=== PATIENT | male | born 1975 | race Caucasian/White ===

== ENCOUNTER 2017-01-05 19:56 | Emergency (ER) | payer BC ==
[~2017-01-05] VITALS: Ht 177.8 cm; Wt 106.0 kg
[~2017-01-05 19:56] MED LIST: MTR600XX PO
[2017-01-05 19:59] VITALS: TEMP 36.9; Ht 177.8 cm; Wt 106.0 kg
[2017-01-05] MEDS ORDERED: SODIUM CHLORIDE 0.9% 500ML 500 ML IV STA (20:04)
[2017-01-05] MEDS ORDERED: SODIUM CHLORIDE 0.9% 1000ML 1,000 ML IV STA (20:04)
[2017-01-05] MEDS ORDERED: VANCOMYCIN INJ 2,650 MG in SODIUM CHLORIDE 0.9% 500ML 500 ML IV STA (20:08)
[2017-01-05] MEDS ORDERED: MoRPHine SULFATE 4 MG/ML 1 ML CARP\\VIAL IV STA (20:09)
[2017-01-05] MEDS ORDERED: ONDANSETRON INJ 2 MG/ML 2 ML VIAL IV STA (20:09)
[2017-01-05] MEDS ORDERED: CEFTRIAXONE SOD INJ 1 GM ADDVIAL IV STA (20:11)
[2017-01-05] MEDS ORDERED: BUPR1SUB23 PO (20:13)
[2017-01-05] MEDS ORDERED: IBUP-1050 PO (20:15)
--- NOTE | 2017-01-05 20:25 | EMERGENCY ROOM VISIT NOTE ---
History Report prepared by Crystal: Fabiola Colon Under the Supervision of: Dr. Alyssa Burkett M.D. First contact with patient: 20:04 Chief Complaint: WOUND INFECTION Stated Complaint: WOUND INFECTION History of Present Illness The patient is a 42 year old male who presents to the Emergency Room with complaints of a worsening abdominal wound infection that started one week ago. The patient states that he originally thought that there was tick in his abdomen so he dug at it with a nail clipper. He states that the spot has become erythematous and painful. The patient states that the wound had purulent drainage earlier. He does not think that there is anything in his abdomen now. The patient adds that he shaves his abdomen. He denies any history of diabetes. The patient smokes about a half of a pack a day. Source of History: patient Onset: one week ago Position: abdomen Quality: other (wound infection) Timing: worsening Associated Symptoms: + abdominal pain (in area of the wound) Note: erythema surrounding wound, purulent drainage Review of Systems See HPI for pertinent positives & negatives. A total of 10 systems reviewed and were otherwise negative. Past Medical & Surgical Medical Problems: (1) No significant past medical history Family History No significant family history Social History Smoking Status: Current Every Day Smoker Drug Use: heroin, other Marital Status: in relationship Housing Status: lives with family Occupation Status: employed Current/Historical Medications Scheduled Buprenorphine Hcl-Naloxone Hcl (Suboxone 8-2 Mg), 1 TABS PO BID Cephalexin Monohydrate (Keflex), 500 MG PO QID Ibuprofen (Advil), 400 MG PO DAILY Sulfa/Trimethoprim (Bactrim Ds 800MG/160MG), 1 TAB PO BID Allergies Coded Allergies: Penicillins (Unverified Allergy, Unknown, unknown, 01/05/17) Physical Exam Vital Signs Date Time Temp Pulse Resp B/P Pulse Ox O2 Delivery O2 Flow Rate FiO2 01/05/17 22:52 75 01/05/17 22:18 77 18 135/79 97 Room Air 01/05/17 19:59 36.9 114 18 128/80 96 Room Air Physical Exam Vital signs reviewed. General: Well-appearing male, in no significant distress. HEENT: No scleral icterus, PERRLA, neck supple. Atraumatic. Cardiovascular: Regular rate and rhythm, no extra sounds. Pulmonary: Clear to auscultation bilaterally, normal work of breathing. Abdomen: Soft, obese, 10 cm area of erythema with central abscess that is draining, nontender, nondistended, positive bowel sounds. Musculoskeletal: Atraumatic, no peripheral edema. Neurologic: Patient awake alert and oriented x 3 Skin: Warm, dry, no rash Medical Decision & Procedures ER Provider Diagnostic Interpretation: CT results as stated below per my review and radiologist interpretation: CT OF THE ABDOMEN AND PELVIS WITHOUT CONTRAST IMPRESSION: Skin thickening with mild to moderate subcutaneous infiltration of the lower anterior abdominal wall suggestive of cellulitis. No drainable fluid collection. No soft tissue gas. Electronically signed by: Miguelito Guerrero M.D. 01/05/2017 10:29 PM Dictated Date/Time: 01/05/2017 10:21 PM Laboratory Results 01/05/17 21:05 Red Blood Count 4.78, Mean Corpuscular Volume 82.0, Mean Corpuscular Hemoglobin 28.2, Mean Corpuscular Hemoglobin Concent 34.4, Mean Platelet Volume 8.4, Neutrophils (%) (Auto) 64.5, Lymphocytes (%) (Auto) 23.9, Monocytes (%) (Auto) 10.4, Eosinophils (%) (Auto) 0.8, Basophils (%) (Auto) 0.1, Neutrophils # (Auto ) 4.96, Lymphocytes # (Auto) 1.84, Monocytes # (Auto) 0.80, Eosinophils # (Auto ) 0.06, Basophils # (Auto) 0.01 01/05/17 21:05 Test 01/05/17 21:05 White Blood Count 7.69 K/uL (4.8-10.8) Red Blood Count 4.78 M/uL (4.7-6.1) Hemoglobin 13.5 g/dL (14.0-18.0) Hematocrit 39.2 % (42-52) Mean Corpuscular Volume 82.0 fL (80-100) Mean Corpuscular Hemoglobin 28.2 pg (25-34) Mean Corpuscular Hemoglobin Concent 34.4 g/dl (32-36) Platelet Count 243 K/uL (130-400) Mean Platelet Volume 8.4 fL (7.4-10.4) Neutrophils (%) (Auto) 64.5 % Lymphocytes (%) (Auto) 23.9 % Monocytes (%) (Auto) 10.4 % Eosinophils (%) (Auto) 0.8 % Basophils (%) (Auto) 0.1 % Neutrophils # (Auto) 4.96 K/uL (1.4-6.5) Lymphocytes # (Auto) 1.84 K/uL (1.2-3.4) Monocytes # (Auto) 0.80 K/uL (0.11-0.59) Eosinophils # (Auto) 0.06 K/uL (0-0.5) Basophils # (Auto) 0.01 K/uL (0-0.2) RDW Standard Deviation 37.5 fL (36.4-46.3) RDW Coefficient of Variation 12.3 % (11.5-14.5) Immature Granulocyte % (Auto) 0.3 % Immature Granulocyte # (Auto) 0.02 K/uL (0.00-0.02) Anion Gap 24.0 mmol/L (3-11) Est Creatinine Clear Calc Drug Dose 92.1 ml/min Estimated GFR () 79.1 Estimated GFR (Non- 68.3 BUN/Creatinine Ratio 12.3 (10-20) Calcium Level 7.7 mg/dl (8.5-10.1) Total Bilirubin 0.3 mg/dl (0.2-1) Direct Bilirubin < 0.1 mg/dl (0-0.2) Aspartate Amino Transf (AST/SGOT) 15 U/L (15-37) Alanine Aminotransferase (ALT/SGPT) 29 U/L (12-78) Alkaline Phosphatase 82 U/L (45-117) Total Protein 7.0 gm/dl (6.4-8.2) Albumin 2.9 gm/dl (3.4-5.0) Laboratory results per my review. Medications Administered Medications (Trade) Dose Ordered Sig/Anne Route Start Time Stop Time Status Last Admin Dose Admin Sodium Chloride 500 ml @ 999 mls/hr Q31M STAT IV 01/05/17 20:04 01/05/17 20:34 DC 01/05/17 20:04 999 MLS/HR Sodium Chloride 1,000 ml @ 125 mls/hr Q8H STAT IV 01/05/17 20:04 01/06/17 04:03 01/05/17 20:31 125 MLS/HR Vancomycin HCl/ Sodium Chloride (Vancomycin Inj/ Nss 500ml) 553 ml @ 200 mls/hr ONE STAT IV 01/05/17 20:08 01/05/17 22:53 DC 01/05/17 22:17 200 MLS/HR Morphine Sulfate (MoRPHine SULFATE INJ) 4 mg NOW STAT IV 01/05/17 20:09 01/05/17 20:10 DC 01/05/17 20:31 4 MG Ondansetron HCl (Zofran Inj) 4 mg NOW STAT IV 01/05/17 20:09 01/05/17 20:10 DC 01/05/17 20:31 4 MG Ceftriaxone Sodium (Rocephin Inj) 1 gm NOW STAT IV 01/05/17 20:11 01/05/17 20:12 DC 01/05/17 20:31 1 GM ED Course 2004: Ordered Sodium Chloride 1000 ml @ 125 mls/hr IV, Sodium Chloride 500 ml @ 999 mls/hr IV 2006: Past medical records reviewed. The patient was evaluated in room C1. A complete history and physical examination was performed. 2008: Ordered Vancomycin HCl 2650 mg/Sodium Chloride 553 ml @ 200 mls/hr IV 2009: Ordered Zofran Inj 4 mg IV, Morphine Sulfate 4 mg IV 2011: Ordered Rocephin Inj 1 gm IV 2213: I discussed the patient's case with Orlando Hardwick PA-C. He is going to do an incision and drainage on the patient's abscess. 2215: Ordered Lidocaine HCl 20 ml INFIL 2224: Orlando Hardwick PA-C performed the incision and drainage at this time. Please refer to his note for further management. 2251: Upon reevaluation, the patient appeared to have improvement of his symptoms. I discussed findings with him. He verbalized agreement of the treatment plan. He was discharged home. Medical Decision Differentials include cellulitis, abscess, MRSA infection, DVT, necrotizing fasciitis, dermatitis, drug eruption, as well as others were entertained. This patient was evaluated and appeared to be in no significant distress. IV access was obtained and laboratory work was drawn. The patient was hydrated with normal saline solution. Blood cultures were obtained. Patient's laboratory work reveals a normal white blood cell count. He is not febrile. He does have a large area of cellulitis to the lower abdominal wall with a central abscess collection. There is no palpable crepitus however CT scan was performed of the abdomen and pelvis to rule out a checking fistula or subcutaneous air. Patient was medicated with IV vancomycin and IV ceftriaxone. He does have a penicillin allergy of uncertain effect. An I&D was performed by Orlando Hardwick PA-C. Wound cultures were obtained. The patient was given wound care instructions and will continue with Keflex 4 times a day 7 days and Bactrim twice a day 7 days. Patient was encouraged to return to the ER in 2 days for wound recheck. He was encouraged to establish with a primary care physician and return to the ER sooner for worsening of symptoms or any medical concerns. Impression Primary Impression: Abscess, abdomen Additional Impression: Cellulitis of abdominal wall Scribe Attestation The scribe's documentation has been prepared under my direction and personally reviewed by me in its entirety. I confirm that the note above accurately reflects all work, treatment, procedures, and medical decision making performed by me. Departure Information Dispostion Home / Self-Care Prescriptions Cephalexin Monohydrate (Keflex) 500 Mg Cap 500 MG PO QID, #28 CAP Prov: Alyssa Burkett M.D. 01/05/17 Sulfa/Trimethoprim (Bactrim Ds 800MG/160MG) Tab 1 TAB PO BID, #14 TAB Prov: Alyssa Burkett M.D. 01/05/17 Referrals No Doctor, Assigned (PCP) Forms HOME CARE DOCUMENTATION FORM, IMPORTANT VISIT INFORMATION, WORK / SCHOOL INSTRUCTIONS Patient Instructions My [facility] Additional Instructions Diagnosis: Cellulitis and abscess of the abdominal wall Bactrim DS one to have twice daily for 7 days. Keflex one tablet 4 x daily for 7 days. Ibuprofen 600 mg every 6 hours as needed for pain. Tylenol 650 mg every 6 hours as needed for pain. Wash wound with warm water and soap, pat dry with a clean towel. Apply antibiotic ointment and a dry dressing. Return to the emergency department in 2 days for wound recheck. Follow-up with your physician for reevaluation and return to the ER for worsening of symptoms or any medical concerns. Problem Qualifiers
[2017-01-05 21:21] LABS: BASO % 0.1 %; BASO ABS # 0.01 K/uL (0-0.2); COMPLETE YES; EOS % 0.8 %; HEMATOCRIT 39.2 % (42-52); IG% 0.3 %; LYMPH % 23.9 %; LYMPH ABS # 1.84 K/uL (1.2-3.4); MEAN CORPUSCULAR HEMOGLOBIN 28.2 pg (25-34); MEAN CORPUSCULAR HGB CONC 34.4 g/dl (32-36); MEAN PLATELET VOLUME 8.4 fL (7.4-10.4); MONO % 10.4 %; NEUT % 64.5 %; PLATELET COUNT 243 K/uL (130-400); RED BLOOD COUNT 4.78 M/uL (4.7-6.1); WHITE BLOOD COUNT 7.69 K/uL (4.8-10.8)
[2017-01-05 21:36] LABS: ALT/SGPT 29 U/L (12-78); BLOOD UREA NITROGEN 16 mg/dl (7-18); BUN/CREATININE RATIO 12.3 (10-20); CALCIUM 7.7 mg/dl (8.5-10.1); CARBON DIOXIDE 22 mmol/L (21-32); CHLORIDE 98 mmol/L (98-107); GLUCOSE 95 mg/dl (70-99); POTASSIUM 3.5 mmol/L (3.5-5.1); SODIUM 144 mmol/L (136-145)
[2017-01-05 21:39] LABS: ALKALINE PHOSPHATASE 82 U/L (45-117); AST/SGOT 15 U/L (15-37)
[2017-01-05] MEDS ORDERED: XYLOCAINE 1%/SOD BICARB 20 ML VIAL INFIL ONE (22:15)
[2017-01-05] MEDS ORDERED: CEPH500C PO (22:21)
[2017-01-05] MEDS ORDERED: SULF800T23 PO (22:21)
--- NOTE | 2017-01-05 22:30 | DIAGNOSTIC IMAGING REPORT ---
CT OF THE ABDOMEN AND PELVIS WITHOUT CONTRAST CLINICAL HISTORY: Abdominal wall cellulitis. COMPARISON STUDY: No previous studies for comparison. TECHNIQUE: Axial images of the abdomen and pelvis were obtained without IV contrast. Images were reviewed in the axial, sagittal, and coronal planes. FINDINGS: Lung bases are clear. Unenhanced images of the liver, spleen, adrenal glands, kidneys and pancreas are normal. There is no hydronephrosis. No urinary calculi are identified. There is no evidence for a bowel obstruction. The appendix is normal. Note is made of skin thickening of the lower abdomen with mild to moderate subcutaneous infiltration. There is no fluid collection is identified on this unenhanced exam to suggest an abscess. No suspicious skeletal lesions are identified. No soft tissue gas is present. IMPRESSION: Skin thickening with mild to moderate subcutaneous infiltration of the lower anterior abdominal wall suggestive of cellulitis. No drainable fluid collection. No soft tissue gas. Electronically signed by: Miguelito Guerrero M.D. 01/05/2017 10:29 PM Dictated Date/Time: 01/05/2017 10:21 PM
[2017-01-05] MEDS ORDERED: SULFAMETHOXAZOLE/TRIMETHOPRIM DS 800/160MG TAB PO STA (23:29)
[2017-01-05 23:30] VITALS: BP 139/59; PULSE 82; O2SAT 97
--- NOTE | 2017-01-06 05:33 | EMERGENCY ROOM VISIT NOTE ---
ED Visit Note Patient was seen and evaluated the request of my attending physician, Dr. Burkett, for an abdominal wall abscess. Please see Dr. Burkett's dictation for full history of present illness and Emergency Department course outside of this procedure. In short, the patient has an abdominal wall abscess with cellulitis. On examination the patient has significant redness of the lower abdominal wall. There appears to be a central abscess with only minimal drainage. The cellulitis was demarcated with a surgical pen. Verbal consent was obtained to perform the procedure. After saline and Betadine cleansing and 8 mL of 1% buffered lidocaine anesthesia, the abscess was incised with a number 11 scalpel blade. A large amount of purulent material was released with more expressed by pressure. A swab was obtained for culture. The abscess cavity was further probed with a needle electric lift truck driver and the deep pocket expressed. The abscess cavity was then copiously irrigated with sterile saline under pressure. The area was then packed with bacitracin soaked packing. The area was cleaned with sterile saline and dressed with bacitracin and a bulky bandage. The patient tolerated the procedure well. Current/Historical Medications Scheduled Buprenorphine Hcl-Naloxone Hcl (Suboxone 8-2 Mg), 1 TABS PO BID Cephalexin Monohydrate (Keflex), 500 MG PO QID Ibuprofen (Advil), 400 MG PO DAILY Sulfa/Trimethoprim (Bactrim Ds 800MG/160MG), 1 TAB PO BID Allergies Coded Allergies: Penicillins (Unverified Allergy, Unknown, unknown, 01/05/17) Vital Signs Date Time Temp Pulse Resp B/P Pulse Ox O2 Delivery O2 Flow Rate FiO2 01/05/17 23:30 82 18 139/59 97 Room Air 01/05/17 22:52 75 01/05/17 22:18 77 18 135/79 97 Room Air 01/05/17 19:59 36.9 114 18 128/80 96 Room Air Laboratory Results 01/05/17 21:05 Red Blood Count 4.78, Mean Corpuscular Volume 82.0, Mean Corpuscular Hemoglobin 28.2, Mean Corpuscular Hemoglobin Concent 34.4, Mean Platelet Volume 8.4, Neutrophils (%) (Auto) 64.5, Lymphocytes (%) (Auto) 23.9, Monocytes (%) (Auto) 10.4, Eosinophils (%) (Auto) 0.8, Basophils (%) (Auto) 0.1, Neutrophils # (Auto ) 4.96, Lymphocytes # (Auto) 1.84, Monocytes # (Auto) 0.80, Eosinophils # (Auto ) 0.06, Basophils # (Auto) 0.01 01/05/17 21:05 Test 01/05/17 21:05 White Blood Count 7.69 K/uL (4.8-10.8) Red Blood Count 4.78 M/uL (4.7-6.1) Hemoglobin 13.5 g/dL (14.0-18.0) Hematocrit 39.2 % (42-52) Mean Corpuscular Volume 82.0 fL (80-100) Mean Corpuscular Hemoglobin 28.2 pg (25-34) Mean Corpuscular Hemoglobin Concent 34.4 g/dl (32-36) Platelet Count 243 K/uL (130-400) Mean Platelet Volume 8.4 fL (7.4-10.4) Neutrophils (%) (Auto) 64.5 % Lymphocytes (%) (Auto) 23.9 % Monocytes (%) (Auto) 10.4 % Eosinophils (%) (Auto) 0.8 % Basophils (%) (Auto) 0.1 % Neutrophils # (Auto) 4.96 K/uL (1.4-6.5) Lymphocytes # (Auto) 1.84 K/uL (1.2-3.4) Monocytes # (Auto) 0.80 K/uL (0.11-0.59) Eosinophils # (Auto) 0.06 K/uL (0-0.5) Basophils # (Auto) 0.01 K/uL (0-0.2) RDW Standard Deviation 37.5 fL (36.4-46.3) RDW Coefficient of Variation 12.3 % (11.5-14.5) Immature Granulocyte % (Auto) 0.3 % Immature Granulocyte # (Auto) 0.02 K/uL (0.00-0.02) Anion Gap 24.0 mmol/L (3-11) Est Creatinine Clear Calc Drug Dose 92.1 ml/min Estimated GFR () 79.1 Estimated GFR (Non- 68.3 BUN/Creatinine Ratio 12.3 (10-20) Calcium Level 7.7 mg/dl (8.5-10.1) Total Bilirubin 0.3 mg/dl (0.2-1) Direct Bilirubin < 0.1 mg/dl (0-0.2) Aspartate Amino Transf (AST/SGOT) 15 U/L (15-37) Alanine Aminotransferase (ALT/SGPT) 29 U/L (12-78) Alkaline Phosphatase 82 U/L (45-117) Total Protein 7.0 gm/dl (6.4-8.2) Albumin 2.9 gm/dl (3.4-5.0) Medications Administered Medications (Trade) Dose Ordered Sig/Anne Route Start Time Stop Time Status Last Admin Dose Admin Sodium Chloride 500 ml @ 999 mls/hr Q31M STAT IV 01/05/17 20:04 01/05/17 20:34 DC 01/05/17 20:04 999 MLS/HR Sodium Chloride 1,000 ml @ 125 mls/hr Q8H STAT IV 01/05/17 20:04 01/06/17 00:10 DC 01/05/17 20:31 125 MLS/HR Vancomycin HCl/ Sodium Chloride (Vancomycin Inj/ Nss 500ml) 553 ml @ 200 mls/hr ONE STAT IV 01/05/17 20:08 01/05/17 23:29 DC 01/05/17 22:17 200 MLS/HR Morphine Sulfate (MoRPHine SULFATE INJ) 4 mg NOW STAT IV 01/05/17 20:09 01/05/17 20:10 DC 01/05/17 20:31 4 MG Ondansetron HCl (Zofran Inj) 4 mg NOW STAT IV 01/05/17 20:09 01/05/17 20:10 DC 01/05/17 20:31 4 MG Ceftriaxone Sodium (Rocephin Inj) 1 gm NOW STAT IV 01/05/17 20:11 01/05/17 20:12 DC 01/05/17 20:31 1 GM Trimethoprim/ Sulfamethoxazole (Septra Ds 800/ 160MG Tab) 1 tab NOW STAT PO 01/05/17 23:29 01/05/17 23:30 DC 01/05/17 23:29 1 TAB Departure Information Impression Primary Impression: Abscess, abdomen Additional Impression: Cellulitis of abdominal wall Dispostion Home / Self-Care Condition GOOD Prescriptions Cephalexin Monohydrate (Keflex) 500 Mg Cap 500 MG PO QID, #28 CAP Prov: Alyssa Burkett M.D. 01/05/17 Sulfa/Trimethoprim (Bactrim Ds 800MG/160MG) Tab 1 TAB PO BID, #14 TAB Prov: Alyssa Burkett M.D. 01/05/17 Referrals No Doctor, Assigned (PCP) Forms WORK / SCHOOL INSTRUCTIONS, HOME CARE DOCUMENTATION FORM, IMPORTANT VISIT INFORMATION Patient Instructions My [facility] Additional Instructions Diagnosis: Cellulitis and abscess of the abdominal wall Bactrim DS one to have twice daily for 7 days. Keflex one tablet 4 x daily for 7 days. Ibuprofen 600 mg every 6 hours as needed for pain. Tylenol 650 mg every 6 hours as needed for pain. Wash wound with warm water and soap, pat dry with a clean towel. Apply antibiotic ointment and a dry dressing. Return to the emergency department in 2 days for wound recheck. Follow-up with your physician for reevaluation and return to the ER for worsening of symptoms or any medical concerns. Problem Qualifiers
--- NOTE | 2017-01-07 18:51 | Pharmacy Progress Note ---
ED Pharmacist Culture FollowUp Date of Service: Jan 07, 2017. Patient was sent home with a prescription for Bactrim, which should cover the oxacillin-resistant Staph aureus (MRSA) growing from the patient's wound culture. Patient was also sent home with a prescription for Keflex. Recommend discontinuation of the Keflex when patient returns for wound re-check later today or tomorrow.
== END 2017-01-05 23:47 | disposition home or self-care (01) ==
LOC: C.EDB 19:58 → C.EDC 23:47
DX: L02.211 Cutaneous abscess of abdominal wall (principal); L03.311 Cellulitis of abdominal wall; F17.210 Nicotine dependence, cigarettes, uncomplicated

== ENCOUNTER 2017-01-07 19:47 | Emergency (ER) | payer BC ==
[~2017-01-07] VITALS: Ht 177.8 cm; Wt 106.6 kg
[~2017-01-07 19:47] MED LIST changes: +BUPR1SUB23 PO; +CEPH500C PO; +IBUP-1050 PO; -MTR600XX PO; +SULF800T23 PO
[2017-01-07 19:53] VITALS: TEMP 36.4; Ht 177.8 cm; Wt 106.6 kg
[2017-01-07] MEDS ORDERED: CITA40TA4 PO (20:05)
[2017-01-07 20:33] VITALS: BP 151/88; PULSE 84; O2SAT 95
--- NOTE | 2017-01-09 01:02 | EMERGENCY ROOM VISIT NOTE ---
ED Visit Note First contact with patient: 20:11 CHIEF COMPLAINT: Abscess recheck. HISTORY OF PRESENT ILLNESS: Mr. Garcia is a 42-year-old white male who ambulates into the ED accompanied by a female friend abscess recheck and possible packing removal. Patient reports he was here 2 days ago for an abdominal wall abscess. An I&D procedure was performed and he was discharged home on Keflex and Bactrim for follow-up in 36-48 hours. Patient reports since being discharge and standing his antibiotics he has been feeling much better. He describes a mild achy sensation in the area of his abscess. He rates his discomfort 3/10. The pain is nonradiating. He has not identified any aggravating or alleviating factors related to the pain. He has noted decreased redness and swelling around the wound and mild purulent drainage. He denies fevers, chills, sweats, other abdominal pain, nausea, vomiting. Additionally he reports he feels the abscess is healing well. PHYSICAL EXAM: Vital Signs: Date Time Temp Pulse Resp B/P Pulse Ox O2 Delivery O2 Flow Rate FiO2 01/07/17 20:33 84 20 151/88 95 01/07/17 19:53 36.4 73 18 128/85 95 Room Air General: 42-year-old awake and alert and oriented 3, answering questions appropriately and following commands. No focal motor sensory deficits. Skin: Mild erythema still surrounding the wound. No lymphangitis streaks. The wound itself is mildly tender to palpation but I do not appreciate any fluctuance to the wound. Currently there is no active drainage. Lungs: Clear to auscultation and equal bilaterally at symmetrical chest wall movements. No wheezing, rales or rhonchi. Abdomen: Soft with mild tenderness over his I&D site. No peritoneal symptoms. Bowel sounds are present. ED COURSE: Patient is assessed as noted above. Packing is reviewed from the patient's abscess without difficulty. Culture results were reviewed. Patient was educated about tonight's findings and instructed on his treatment plan; he verbalizes understanding and agreement with this plan. DISPOSITION: Patient discharged home in stable condition. CLINICAL IMPRESSION: Abscess recheck. Packing removal. Improving abscess. PLAN: Patient was encouraged to continue Bactrim but told he can stop Keflex because of the bacteria present and his wound. Patient was encouraged to continue Keflex until complete. Patient was encouraged to follow-up with his primary care provider for recheck at the completion of his antibiotics and 10 days. Patient was encouraged return ED for redness/swelling, increasing puslike drainage, red streaking, fevers or any new/concerning symptoms.
== END 2017-01-07 20:35 | disposition home or self-care (01) ==
LOC: C.EDB 19:48 → C.EDD 20:35
DX: Z48.01 Encounter for change or removal of surgical wound dressing (principal); L02.211 Cutaneous abscess of abdominal wall

== ENCOUNTER 2017-05-04 11:03 | Emergency (ER) | payer SELFPAY ==
[~2017-05-04] VITALS: Ht 177.8 cm; Wt 106.6 kg
[~2017-05-04 11:03] MED LIST changes: +CITA40TA4 PO
[2017-05-04 11:06] VITALS: TEMP 36.6; Ht 177.8 cm; Wt 106.6 kg
[2017-05-04] MEDS ORDERED: CLONIDINE HCL 0.3 MG/24 HR TRANSDERM SYS TD STA (11:19)
--- NOTE | 2017-05-04 11:42 | EMERGENCY ROOM VISIT NOTE ---
History First contact with patient: 11:12 Chief Complaint: WOUND INFECTION Stated Complaint: ABCESS Nursing Triage Summary: Pt reports he believes he is developing an abscess. Hx of the same. One on R upper leg (groin area), smaller one on L thigh. History of Present Illness The patient is a 42 year old male who presents to the Emergency Room via private vehicle accompanied by mother with complaints of "abscess". The patient states that recently he injected himself with Hernandez salts in his hands and arms. He states that nearly every time after doing this, he develops abscesses or infection somewhere on his body. He states that although he did not inject himself in the legs, he has a red area on the right proximal anterior thigh, as well as the right mid anterior thigh. He tried to drain the left one, but feels at the right one any to be drained. He's been on the Suboxone program 3 years. He states that he is also done meth in the past month the smoking. At this time he feels as though he is in withdrawal, notes that his skin is crawling, and he feels chilled. He denies any fevers, nausea, vomiting. He states that he would like help with rehabilitation services. He states he has a history of MRSA infection. Review of Systems A complete 10-point Review of Systems was discussed with the patient, with pertinent positives and negatives listed in the History of Present Illness. All remaining Review of Systems questions can be considered negative unless otherwise specified. Past Medical/Surgical History Medical Problems: (1) No significant past medical history Family History No significant family history Social History Smoking Status: Current Every Day Smoker Drug Use: heroin, other Marital Status: in relationship Housing Status: lives with family Occupation Status: employed Current/Historical Medications Scheduled Cephalexin Monohydrate (Keflex), 500 MG PO QID Sulfa/Trimethoprim (Bactrim Ds 800MG/160MG), 1 TAB PO BID Physical Exam Vital Signs Date Time Temp Pulse Resp B/P (MAP) Pulse Ox O2 Delivery O2 Flow Rate FiO2 05/04/17 15:17 79 16 135/84 99 05/04/17 13:01 74 16 134/96 97 Room Air 05/04/17 11:32 88 18 127/95 98 Room Air 05/04/17 11:06 36.6 91 20 142/73 98 Room Air Physical Exam VITAL SIGNS - Vital signs and nursing notes were reviewed. Afebrile, hypertensive at 132/73, nontoxic tachycardic and is saturating well on room air 98%. GENERAL -42-year-old male appearing his stated age who is in no acute distress. Communicates well with provider and answers questions appropriately. SKIN - there is an 8cm x 8cm, circular erythematous rash on the patient's right proximal anterior thigh. There is a central region of induration without fluctuance material noted in the center. No evidence of abscess. On the left anterior mid thigh there is also a slightly smaller erythematous 6 cm x 6 cm nonraised erythematous rash, no induration. No evidence of fluctuant palpable mass. There is a small amount of dried purulent material that is dry. HEAD - NC/AT. EYES - PERRL with EOMI bilaterally. Sclera anicteric. Palpebral conjunctiva pink and moist with no injection noted. EARS - No deformities of external structures noted on gross examination bilaterally. NOSE - Midline and without cyanosis. No epistaxis or purulent drainage noted. MOUTH/OROPHARYNX - Without perioral cyanosis. LUNGS - Chest wall symmetric without accessory muscle use, intercostals retractions, or central cyanosis. Normal vesicular breath sounds CTA B/L. No wheezes, rales, or rhonchi appreciated. CARDIAC - RRR with S1/S2. No murmur, rubs, or gallops appreciated. EXTREMITIES - No clubbing or peripheral cyanosis. No pretibial edema present. He is neurovascularly intact in his extremities. +5/5 strength noted in UE/LE bilaterally. NEUROLOGIC - Cranial nerves II through XII grossly intact. Sensory intact to light touch throughout. PSYCH - A&O Pt is very pleasant and interacts well with examiner. Medical Decision & Procedures Laboratory Results 05/04/17 12:00 Red Blood Count 5.03, Mean Corpuscular Volume 81.1, Mean Corpuscular Hemoglobin 28.6, Mean Corpuscular Hemoglobin Concent 35.3, Mean Platelet Volume 9.0, Neutrophils (%) (Auto) 68.5, Lymphocytes (%) (Auto) 23.0, Monocytes (%) (Auto) 7.2, Eosinophils (%) (Auto) 0.9, Basophils (%) (Auto) 0.1, Neutrophils # (Auto) 4.79, Lymphocytes # (Auto) 1.61, Monocytes # (Auto) 0.50, Eosinophils # (Auto) 0.06, Basophils # (Auto) 0.01 05/04/17 12:00 Test 05/04/17 11:31 05/04/17 11:35 05/04/17 12:00 Bedside Glucose 113 mg/dl (70-99) Urine Color YELLOW Urine Appearance CLEAR (CLEAR) Urine pH 5.5 (4.5-7.5) Urine Specific [place] 1.023 (1.000-1.030) Urine Protein NEG (NEG) Urine Glucose (UA) NEG (NEG) Urine Ketones NEG (NEG) Urine Occult Blood NEG (NEG) Urine Nitrite NEG (NEG) Urine Bilirubin NEG (NEG) Urine Urobilinogen NEG (NEG) Urine Leukocyte Esterase NEG (NEG) Urine Opiates Screen NEG (NEG) Urine Methadone, Qualitative NEG (NEG) Urine Barbiturates NEG (NEG) Urine Phencyclidine (PCP) Level NEG (NEG) Ur Amphetamine/Methamphetamine POS (NEG) MDMA (Ecstasy) Screen POS (NEG) Urine Benzodiazepines Screen NEG (NEG) Urine Cocaine Metabolite NEG (NEG) Urine Marijuana (THC) NEG (NEG) White Blood Count 6.99 K/uL (4.8-10.8) Red Blood Count 5.03 M/uL (4.7-6.1) Hemoglobin 14.4 g/dL (14.0-18.0) Hematocrit 40.8 % (42-52) Mean Corpuscular Volume 81.1 fL (80-100) Mean Corpuscular Hemoglobin 28.6 pg (25-34) Mean Corpuscular Hemoglobin Concent 35.3 g/dl (32-36) Platelet Count 213 K/uL (130-400) Mean Platelet Volume 9.0 fL (7.4-10.4) Neutrophils (%) (Auto) 68.5 % Lymphocytes (%) (Auto) 23.0 % Monocytes (%) (Auto) 7.2 % Eosinophils (%) (Auto) 0.9 % Basophils (%) (Auto) 0.1 % Neutrophils # (Auto) 4.79 K/uL (1.4-6.5) Lymphocytes # (Auto) 1.61 K/uL (1.2-3.4) Monocytes # (Auto) 0.50 K/uL (0.11-0.59) Eosinophils # (Auto) 0.06 K/uL (0-0.5) Basophils # (Auto) 0.01 K/uL (0-0.2) RDW Standard Deviation 39.1 fL (36.4-46.3) RDW Coefficient of Variation 13.1 % (11.5-14.5) Immature Granulocyte % (Auto) 0.3 % Immature Granulocyte # (Auto) 0.02 K/uL (0.00-0.02) Anion Gap 8.0 mmol/L (3-11) Est Creatinine Clear Calc Drug Dose 136.4 ml/min Estimated GFR () 124.5 Estimated GFR (Non- 107.5 BUN/Creatinine Ratio 9.5 (10-20) Calcium Level 8.1 mg/dl (8.5-10.1) Total Bilirubin 0.2 mg/dl (0.2-1) Direct Bilirubin < 0.1 mg/dl (0-0.2) Aspartate Amino Transf (AST/SGOT) 20 U/L (15-37) Alanine Aminotransferase (ALT/SGPT) 48 U/L (12-78) Alkaline Phosphatase 112 U/L (45-117) Total Protein 6.9 gm/dl (6.4-8.2) Albumin 3.3 gm/dl (3.4-5.0) Thyroid Stimulating Hormone (TSH) 0.144 uIu/ml (0.300-4.500) Ethyl Alcohol mg/dL < 3.0 mg/dl (0-3) Medications Administered Medications (Trade) Dose Ordered Sig/Anne Route Start Time Stop Time Status Last Admin Dose Admin Clonidine HCl (Ophfysck-Aqj-2 0.3mg/24hr Patch) 1 patch NOW STAT TD 05/04/17 11:19 05/04/17 11:20 DC 05/04/17 11:34 1 PATCH Diphtheria/ Pertussis/Tetanus Vacc (Adacel Inj) 0.5 ml ONCE ONCE IM. 05/04/17 11:45 05/04/17 11:46 DC 05/04/17 12:14 0.5 ML Medical Decision Patient was seen and evaluated as above. After obtaining a thorough history and physical examination. IV access was initiated, Workup was performed. Patient presents to us today with cellulitis on his bilateral thighs, without evidence of abscess. He'll be treated with Keflex and Bactrim. He requests rehabilitation for his drug use. I did speak with the casey saw operator, who will facilitate this. He had in over the phone interview , and will meet tomorrow at 2 or 3 PM in [place] for rehabilitation. CBC reveals no leukocytosis or concerning anemia. Potassium low at 3.4, chloride 111, glucose high at 113, calcium of 8.1, albumin low at 3.3 and TSH low at 0.144. Urine is negative. Toxicology screen is positive for amphetamines, and MDMA. Alcohol level negative. At this time the patient appears stable for outpatient management, and is instructed to return if worsening of his symptoms. He was educated on worrisome symptoms which to return, had questions or discharge, and was discharged home in good condition. He was given a tetanus shot today. In the evaluation treatment this patient following differential diagnoses were entertained: Cellulitis, abscess, among others. Impression Primary Impression: Cellulitis of leg Additional Impression: Hypokalemia Departure Information Dispostion Home / Self-Care Condition GOOD Prescriptions Sulfa/Trimethoprim (Bactrim Ds 800MG/160MG) Tab 1 TAB PO BID for 10 Days, #20 TAB Prov: Lino Tay PA-C 05/04/17 Cephalexin Monohydrate (Keflex) 500 Mg Cap 500 MG PO QID for 10 Days, #40 CAP Prov: Lino Tay PA-C 05/04/17 Referrals No Doctor, Assigned (PCP) Patient Instructions My [facility] Additional Instructions You were seen in the emergency Department for a skin infection. At this time your calcium and potassium are low, and your TSH is also low. It is recommending having these followed up with her family doctor. Our casey saw operator has helped set up an appointment for you tomorrow as you indicated in [place]. At this time you be prescribed 2 medications. The first is Keflex. This is for an infection. This is one tablet every 6 hours for 10 days. The second medication is Bactrim, which is 1 tablet twice daily which is every 12 hours for 10 days. 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 Please watch for worsening signs of infection to include worsening redness, swelling or drainage. These are to occur please return immediately. Please return to the emergency department with any new/concerning symptoms. Problem Qualifiers
[2017-05-04] MEDS ORDERED: DIPHTHERIA/TETANUS/PERTUSSIS 0.5 ML SYR/VIAL IM. ONE (11:45)
[2017-05-04 11:55] LABS: URINE APPEARANCE CLEAR (CLEAR); URINE BILIRUBIN NEG (NEG); URINE COLOR YELLOW; URINE NITRITE NEG (NEG); URINE PH 5.5 (4.5-7.5); URINE SPECIFIC GRAVITY 1.023 (1.000-1.030); UROBILINOGEN NEG (NEG)
[2017-05-04 12:00] LABS: MANUAL MICROSCOPIC REQUIRED? NO; REVIEW REQ? NO
[2017-05-04 12:16] LABS: BASO % 0.1 %; BASO ABS # 0.01 K/uL (0-0.2); COMPLETE YES; EOS % 0.9 %; HEMATOCRIT 40.8 % (42-52); IG% 0.3 %; LYMPH ABS # 1.61 K/uL (1.2-3.4); MEAN CELL VOLUME 81.1 fL (80-100); MEAN CORPUSCULAR HEMOGLOBIN 28.6 pg (25-34); MEAN CORPUSCULAR HGB CONC 35.3 g/dl (32-36); MONO % 7.2 %; NEUT % 68.5 %; PLATELET COUNT 213 K/uL (130-400); RED BLOOD COUNT 5.03 M/uL (4.7-6.1); WHITE BLOOD COUNT 6.99 K/uL (4.8-10.8)
[2017-05-04 12:21] LABS: BENZODIAZEPINE, URINE NEG (NEG); COCAINE,URINE NEG (NEG); PHENCYCLIDINE, URINE NEG (NEG)
[2017-05-04 12:37] LABS: ALT/SGPT 48 U/L (12-78); AST/SGOT 20 U/L (15-37); BLOOD UREA NITROGEN 8 mg/dl (7-18); BUN/CREATININE RATIO 9.5 (10-20); CALCIUM 8.1 mg/dl (8.5-10.1); CARBON DIOXIDE 25 mmol/L (21-32); CHLORIDE 111 mmol/L (98-107); CREATININE 0.88 mg/dl (0.60-1.40); GLUCOSE 114 mg/dl (70-99); POTASSIUM 3.4 mmol/L (3.5-5.1); SODIUM 144 mmol/L (136-145)
[2017-05-04 12:48] LABS: ALKALINE PHOSPHATASE 112 U/L (45-117); THYROID STIMULATING HORMONE 0.144 uIu/ml (0.300-4.500)
[2017-05-04] MEDS ORDERED: CEPH500C PO (15:09)
[2017-05-04] MEDS ORDERED: SULF800T23 PO (15:09)
[2017-05-04 15:17] VITALS: BP 135/84; PULSE 79; O2SAT 99
== END 2017-05-04 15:18 | disposition home or self-care (01) ==
LOC: C.EDB 11:04 → C.EDC 15:18
DX: L03.115 Cellulitis of right lower limb (principal); L03.116 Cellulitis of left lower limb; E87.6 Hypokalemia; F19.10 Other psychoactive substance abuse, uncomplicated; F11.10 Opioid abuse, uncomplicated; F15.10 Other stimulant abuse, uncomplicated; F17.200 Nicotine dependence, unspecified, uncomplicated; R00.0 Tachycardia, unspecified; Z86.14 Personal history of Methicillin resistant Staphylococcus aureus infection; Z23 Encounter for immunization

== ENCOUNTER 2017-07-30 18:49 | Emergency (ER) | payer OTHER ==
[~2017-07-30] VITALS: Ht 180.3 cm; Wt 111.8 kg
[2017-07-30 19:02] VITALS: TEMP 36.7; Ht 180.3 cm; Wt 111.8 kg
[2017-07-30] MEDS ORDERED: CEFTRIAXONE SOD INJ 1 GM ADDVIAL IV STA (19:24)
[2017-07-30] MEDS ORDERED: MoRPHine SULFATE 4 MG/ML 1 ML CARP\\VIAL IV STA (19:24)
[2017-07-30] MEDS ORDERED: ONDANSETRON INJ 2 MG/ML 2 ML VIAL IV STA (19:24)
[2017-07-30] MEDS ORDERED: XYLOCAINE 1%/SOD BICARB 20 ML VIAL INFIL ONE (19:30)
[2017-07-30 20:19] LABS: BASO % 0.2 %; BASO ABS # 0.02 K/uL (0-0.2); COMPLETE YES; EOS % 0.9 %; HEMATOCRIT 40.9 % (42-52); IG% 0.3 %; LYMPH % 22.8 %; LYMPH ABS # 2.85 K/uL (1.2-3.4); MEAN CELL VOLUME 81.5 fL (80-100); MEAN CORPUSCULAR HEMOGLOBIN 28.3 pg (25-34); MEAN CORPUSCULAR HGB CONC 34.7 g/dl (32-36); MEAN PLATELET VOLUME 8.5 fL (7.4-10.4); MONO % 6.8 %; PLATELET COUNT 322 K/uL (130-400); RED BLOOD COUNT 5.02 M/uL (4.7-6.1); WHITE BLOOD COUNT 12.51 K/uL (4.8-10.8)
[2017-07-30 20:51] LABS: BLOOD UREA NITROGEN 17 mg/dl (7-18); BUN/CREATININE RATIO 17.2 (10-20); CALCIUM 8.6 mg/dl (8.5-10.1); CARBON DIOXIDE 25 mmol/L (21-32); CHLORIDE 106 mmol/L (98-107); CREATININE 0.97 mg/dl (0.60-1.40); GLUCOSE 97 mg/dl (70-99); SODIUM 138 mmol/L (136-145)
[2017-07-30] MEDS ORDERED: MoRPHine SULFATE 10 MG/ML CARP/VIAL IV STA (20:55)
[2017-07-30] MEDS ORDERED: SEPTRA DS HOME PACK 1 EA VIAL PO ONE (21:00)
[2017-07-30] MEDS ORDERED: CEPHALEXIN 500MG HOME PACK 1 EA BTL PO ONE (21:00)
[2017-07-30] MEDS ORDERED: NORCO 5/325MG HOME PACK PO ONE (21:00)
[2017-07-30] MEDS ORDERED: HYDR-5688 PO (21:15)
[2017-07-30] MEDS ORDERED: SULF800T23 PO (21:15)
[2017-07-30] MEDS ORDERED: CEPH500C2 PO (21:15)
[2017-07-30 21:25] VITALS: BP 142/99; PULSE 88; O2SAT 97
--- NOTE | 2017-07-31 21:01 | EMERGENCY ROOM VISIT NOTE ---
ED Visit Note First contact with patient: 19:11 CHIEF COMPLAINT: I have an infection on my back. HISTORY OF PRESENT ILLNESS: Mr. Goodwin is an 42-year-old white male who ambulates into the ED complaining of a possible infection just superior to the right buttock. Patient reports 2 weeks ago he noticed some redness and swelling above his right buttock. He reports initially there was some mild pain. He reports he has been expressing purulent material out of this wound for the last 2 weeks and it has been slowly increasing in size and pain. He denies any previous skin injury in this area. Currently he reports he is having a severe throbbing and pressure pain in the area of his infection. He rates his discomfort 10/10. His pain is nonradiating. His pain worsens with palpation or when he leans against something on his buttocks. He has not identified any alleviating factors related to the pain. He has not taken any medication for pain prior to arrival at the hospital. Associated with his pain he reports he has noticed increasing redness and swelling and he has been having chills and is not sure if he has been experiencing any fevers. Patient denies sweats, chest pain, shortness of breath, decreased appetite, abdominal pain, nausea, vomiting, decreased appetite, lower extremity weakness/ numbness/tingling. REVIEW OF SYSTEMS: As noted above in History of Present Illness; 8 body systems were reviewed and were negative unless noted above. PAST MEDICAL HISTORY: As noted above. CURRENT MEDICATION: Patient denies. ALLERGIES TO MEDICATION: Penicillin. SOCIAL HISTORY: Patient is currently employed; he lives with his parents and feels safe in his home environment; he admits to tobacco and alcohol use. PHYSICAL EXAM: Vital Signs: Date Time Temp Pulse Resp B/P (MAP) Pulse Ox O2 Delivery O2 Flow Rate FiO2 07/30/17 21:25 88 18 142/99 97 07/30/17 20:38 83 18 96 Room Air 07/30/17 19:02 36.7 194 18 169/75 96 Room Air General: 42 year-old male in moderate distress due to pain, nontoxic appearing, afebrile and hemodynamically stable. Neurological: Awake, alert and oriented to person, place and time. Answering questions appropriately and following commands. Skin: Warm, dry and pink. Buttocks: Just superior to the right buttocks over the medial border there is a 5.8 cm indurated area that is fluctuant. The fluctuant area does have pointing but there is no active drainage. There is a zone of inflammation around this lesion measuring a total of 12 cm but no lymphangitis. Thorax: Lungs sounds are clear to auscultation and equal bilaterally with symmetrical chest wall movement. No wheezing, rales or rhonchi. No increased respiratory effort. Abdomen: Flat, soft and nontender. Positive bowel sounds in all quadrants. No guarding or rigidity. ED COURSE: Patient is assessed as noted above. Incision and Drainage: Verbal consent was obtained after the risks and benefits were explained. The skin was prepped with betadine and a sterile field set. The area surrounding the abscess was anesthetized with 11 ml of 1% buffered lidocaine. The abscess cavity was incised with a scalpel. Approximately 12 mL of purulent material was drained from the abscess and more was expressed. Aerobic cultures were obtained and are currently pending. The abscess cavity was sharply dissected with iris scissors to break up loculations and a small amount of additional purulent drainage was expressed. Copious irrigation was performed using sterile saline. The abscess cavity was cleaned out with a cotton tip applicator dipped in Betadine. Hemostasis was achieved. Iodoform gauze packing was inserted into the abscess. A sterile dressing was applied. No complications and the patient tolerated the procedure well. Patient was given 1 g of Rocephin IV for pain and he received a total of 10 mg of morphine IV for pain and 4 mg of Zofran IV. Patient was educated about his condition and instructed on his treatment plan; he verbalized understanding and agreement with this plan. CLINICAL IMPRESSION: Abscess of the right buttock. DISPOSITION: Patient discharged to home in stable condition accompanied by his mother; prior to departure he was reassessed and subjectively reported he was feeling much better and rated his discomfort 3/10. PLAN: Patient was prescribed Keflex 500 mg 4 times a day and Bactrim DS 2 times a day for 10 days. Patient was placed on a sliding pain medication scale of ibuprofen, acetaminophen and [place]; appropriate narcotic precautions were discussed with the patient. I did review the state database and noted that he was on Suboxone up until approximately 2 months ago when he reports he took himself off the medication. I did review the case with Dr. Watson who felt it was appropriate to give the patient [place] because of his pain. Patient was encouraged to keep his bandage dry and not to taken off. Patient was encouraged to follow-up with his PCP or return to the ED for recheck in 36-48 hours and possible packing removal. Patient was encouraged return ED for worsening/uncontrolled pain, fevers, increasing redness/swelling or any new/concerning symptoms.
--- NOTE | 2017-08-01 16:24 | Pharmacy Progress Note ---
ED Pharmacist Culture FollowUp Date of Service: Aug 01, 2017. Patient with MRSA isolated from abscess culture. Called patient. Informed of MRSA result and need to continue Bactrim for the full prescribed course. Counseled that cephalexin could be stopped. Case discussed w NAYANA Garcia. Patient also asked if he needed to be seen in follow-up for evaluation of packing. Per his discharge plan, I noted the following: "Patient was encouraged to follow-up with his PCP or return to the ED for recheck in 36-48 hours and possible packing removal." Patient was seen here ~48 hours ago therefore I encouraged him to be seen tonight for re-evaluation.
== END 2017-07-30 21:34 | disposition home or self-care (01) ==
LOC: C.EDB 18:51 → C.EDD 21:34
DX: L02.212 Cutaneous abscess of back [any part, except buttock and flank] (principal); F17.200 Nicotine dependence, unspecified, uncomplicated; Z88.0 Allergy status to penicillin

== ENCOUNTER 2017-08-01 17:14 | Emergency (ER) | payer OTHER ==
[~2017-08-01] VITALS: Ht 180.3 cm; Wt 112.3 kg
[~2017-08-01 17:14] MED LIST changes: -BUPR1SUB23 PO; -CEPH500C PO; +CEPH500C2 PO; -CITA40TA4 PO; +HYDR-5688 PO; -IBUP-1050 PO
[2017-08-01 17:17] VITALS: BP 154/88; PULSE 80; TEMP 36.7; O2SAT 96; Ht 180.3 cm; Wt 112.3 kg
--- NOTE | 2017-08-01 17:39 | EMERGENCY ROOM VISIT NOTE ---
ED Visit Note First contact with patient: 17:23 CHIEF COMPLAINT: Packing removal HISTORY OF PRESENT ILLNESS: This 42-year-old male patient presents to the emergency department for packing removal of an abscess on his right buttock that was incised and drained 2 days ago.. He believes that it is healing well. He has had no further pain or fevers. REVIEW OF SYSTEMS: A 6 system review of systems was completed with positives and pertinent negatives listed in the HPI. ALLERGIES: Penicillin MEDICATIONS: Reviewed PMH: Unchanged from previous visit. PHYSICAL EXAM: Vital Signs reviewed, see Nurse's notes. Patient is afebrile, vital signs stable. GENERAL: 42-year-old male, awake, alert, well appearing, no acute distress SKIN: Packing is in place in the abscess on the right buttock. There is minimal continued purulent discharge. There is mild surrounding erythema. NEURO: No sensory or motor deficits noted. EMERGENCY DEPARTMENT COURSE AND DECISION MAKING: I examined the patient. The packing was removed. The wound is healing well. Discharge instructions reviewed. Discharged in stable condition. Cultures were reviewed and growing MRSA. The patient is on appropriate antibiotic therapy with Bactrim. DIAGNOSIS: Packing removal TREATMENT PLAN: Please continue antibiotics as prescribed The wound will continue to drain. Please change the dressing daily. It is okay to shower Please return to the emergency department for any worsening symptoms such as returning pain, redness or fever. Followup with surgeon for persistent abscess or return of the abscess.
== END 2017-08-01 17:59 | disposition home or self-care (01) ==
LOC: C.EDB 17:15 → C.EDD 17:59
DX: Z48.00 Encounter for change or removal of nonsurgical wound dressing (principal); L02.31 Cutaneous abscess of buttock